=== PATIENT | female | born 1990 ===

== ENCOUNTER 2016-07-25 12:01 | Outpatient (CLI) | payer OTHER ==
[~2016-07-25] VITALS: Ht 166.4 cm; Wt 155.0 kg
[2016-07-25 12:10] VITALS: BP 114/59
== END 2016-07-25 13:18 | disposition home or self-care (01) ==
LOC: M LDO 12:01
PROVIDERS: ATTEND Student in an Organized Health Care Education/Training Program
DX: O26.893 Other specified pregnancy related conditions, third trimester (principal); Z3A.32 32 weeks gestation of pregnancy; O62.0 Primary inadequate contractions; O26.853 Spotting complicating pregnancy, third trimester

== ENCOUNTER 2016-08-02 07:00 | Outpatient (CLI) | payer OTHER ==
[~2016-08-02] VITALS: Ht 165.1 cm; Wt 72.0 kg
[2016-08-02 07:11] VITALS: BP 112/60
[2016-08-02] MEDS ORDERED: FERR325T3 PO (07:50)
[2016-08-02] MEDS ORDERED: PRENTAB9 PO (07:50)
--- NOTE | 2016-08-02 09:48 | ED PDOC ---
Provider Note [id number] @ 0937 25 yo presents to L&D triage via wheelchair @ 34+0 by LMP([id number]) and 7+1 wk US on [id number] with c/o pelvic pressure and CTXs. Denies LOF, VB and DFM. S: Pt is concerned that she is in PTL. States she has not slept for 24 hours and is scared she might fall if she walks. CTXs kept her up all night. Reported drinking some water and changing position to get more comfortable. Since arriving her CTXs have slowed down and are rare now. O: VS- WNL, afebrile FHR- 135, moderate variability, + accels, no decels CTX- irregular (BERTHA Najera found patient pressing on the toco when she went to check on her. Pt was found later to have moved to toco over the FHR monitor) SVE- closed/thick/high PMH- endometriosis; psoriasis PSH- Lap 2012; D&C 2012 A: 25 yo @ 34+0 by LMP([id number]) and 7+1 wk US on [id number]. With reassuring and reactive NST, occasional, irregular CTX not in PTL based on SVE. P: Send patient home with spouse. Education on strict return precautions: PTL, LOF, CTX, DFM and VB. BEVERLEY AMEZQUITA CNM Aug 02, 2016 09:48
== END 2016-08-02 09:54 | disposition home or self-care (01) ==
LOC: M LDO 07:00
PROVIDERS: ATTEND Obstetrics & Gynecology
DX: O47.03 False labor before 37 completed weeks of gestation, third trimester (principal); Z3A.34 34 weeks gestation of pregnancy; N80.9 Endometriosis, unspecified; L40.9 Psoriasis, unspecified; O99.713 Diseases of the skin and subcutaneous tissue complicating pregnancy, third trimester; O26.893 Other specified pregnancy related conditions, third trimester

== ENCOUNTER 2016-08-12 21:26 | Outpatient (CLI) | payer OTHER ==
[~2016-08-12] VITALS: Ht 165.1 cm; Wt 71.0 kg
[~2016-08-12 21:26] MED LIST: FERR325T3 PO; PRENTAB9 PO
[2016-08-12 21:34] VITALS: BP 118/66
== END 2016-08-12 22:45 | disposition home or self-care (01) ==
LOC: M LDO 21:26
PROVIDERS: ATTEND Obstetrics & Gynecology
DX: O47.03 False labor before 37 completed weeks of gestation, third trimester (principal); Z3A.35 35 weeks gestation of pregnancy

== ENCOUNTER 2016-08-22 14:00 | Outpatient (CLI) | payer OTHER ==
[~2016-08-22] VITALS: Ht 165.1 cm; Wt 72.0 kg
[2016-08-22 14:40] VITALS: BP 109/55
== END 2016-08-22 15:40 | disposition home or self-care (01) ==
LOC: M LDO 14:00
PROVIDERS: ATTEND Obstetrics & Gynecology
DX: O47.03 False labor before 37 completed weeks of gestation, third trimester (principal); Z3A.36 36 weeks gestation of pregnancy

== ENCOUNTER 2016-09-02 10:57 | Outpatient (CLI) | payer OTHER ==
[~2016-09-02] VITALS: Ht 162.6 cm; Wt 74.0 kg
[2016-09-02 11:10] VITALS: BP 105/56
[2016-09-02] MEDS ORDERED: TUMS500C PO (11:17)
[2016-09-02 12:03] LABS: MEAN CORPUSCULAR HEMOGLOBIN 27.8 pg (27.0-33.0); MEAN CORPUSCULAR HGB CONC 33.9 g/dl (32.0-36.5); MEAN CORPUSCULAR VOLUME 82.1 fl (80.0-96.0); RED CELL DISTRIBUTION WIDTH 12.6 % (11.5-14.5)
[2016-09-02 12:26] LABS: ALBUMIN 2.5 GM/DL (3.2-5.2); ALBUMIN/GLOBULIN RATIO 0.71 (1.00-1.93); ALKALINE PHOSPHATASE 123 U/L (45-117); ALT/SGPT 11 U/L (12-78); ANION GAP 9 MEQ/L (8-16); AST/SGOT 19 U/L (15-37); BILIRUBIN,TOTAL 0.3 MG/DL (0.2-1.0); BLOOD UREA NITROGEN 5 MG/DL (7-18); CALCIUM LEVEL 8.4 MG/DL (8.5-10.1); CARBON DIOXIDE LEVEL 22 MEQ/L (21-32); CHLORIDE LEVEL 105 MEQ/L (98-107); CREATININE FOR GFR 0.56 MG/DL (0.55-1.02); GLOMERULAR FILTRATION RATE > 60.0 (>60); GLUCOSE, FASTING 76 MG/DL (70-105); POTASSIUM SERUM 3.9 MEQ/L (3.5-5.1); SODIUM LEVEL 136 MEQ/L (136-145); URIC ACID 4.8 MG/DL (2.6-6.0)
--- NOTE | 2016-09-02 12:26 | IPNPDOC ---
Text Note Date of Service The patient was seen on 09/02/16. NOTE TRIAGE NOTE [id number] @ 1157 25 yo @ 38+2 by LMP([id number]) and 7+1 wk US on [id number] presents to L &D triage ambulatory with c/o CTXs and inability to track movement d/t the CTX pain. Denies LOF and VB. States she has a thick white discharge that looks like cottage cheese. Denies itching and burning. S: Resting in bed on her left side playing on her phone. Spouse at bedside. She states she is having CTXs described as vibrating in right upper abdomen that become a sharp pain. States it is happening every 3 minutes. She is now feeling her babe move "all the time". States she is still having the pain every 3 min, but did not have it during the 10 min I spent doing her exam. O: VS- WNL, afebrile, HR-125 on arrival, then decreased to 110 FHR- 140, moderate variability, + acceels, no decels CTX- none, resting tone palpated as soft, movement palpated No tenderness to palpation over abdomen, Negative Jurado's sign. Wet mount- neg clue cells, neg trich MICHELE- negative fungal elements SVE- 1/thick/-2, vtx/post/moderate MEDS- PNV, tums NKDA PMH- endometriosis, psoriasis PSH- lap 2012 PROBLEM LIST 1. anemia-not taking iron 2. Rh Negative- Rhogam @ 28 wks(07/19/16) 3. ASCUS, HPV + 4. difficulty breathing- pulm consult OB hx- ; [id number] 6 lbs 15 oz-Denies complications A: 25 yo @ 38+2 with reassuring and reactive NST, no concerns for CTX or GHTN, no concerns for abuse, labs reassuring P: Discharge to home, RUQ US at [place] next week VS,Fishbone, I+O VS, Fishbone, I+O Vital Signs Date Time Temp Pulse Resp B/P (MAP) Pulse Ox O2 Delivery O2 Flow Rate FiO2 09/02/16 11:10 98.3 125 18 105/56 (72) BEVERLEY AMEZQUITA CNM Sep 02, 2016 12:26
== END 2016-09-02 12:40 | disposition home or self-care (01) ==
LOC: M LDO 10:57
PROVIDERS: ATTEND Midwife
DX: O47.1 False labor at or after 37 completed weeks of gestation (principal); Z3A.38 38 weeks gestation of pregnancy; N89.9 Noninflammatory disorder of vagina, unspecified; O36.8130 Decreased fetal movements, third trimester, not applicable or unspecified; O99.013 Anemia complicating pregnancy, third trimester; R87.610 Atypical squamous cells of undetermined significance on cytologic smear of cervix (ASC-US); R87.810 Cervical high risk human papillomavirus (HPV) DNA test positive; Z86.2 Personal history of diseases of the blood and blood-forming organs and certain disorders involving the immune mechanism; Z87.09 Personal history of other diseases of the respiratory system; Z91.018 Allergy to other foods; O26.893 Other specified pregnancy related conditions, third trimester; O98.513 Other viral diseases complicating pregnancy, third trimester

== ENCOUNTER 2016-09-07 04:45 | Inpatient (IN) | payer OTHER ==
[~2016-09-07] VITALS: Ht 165.1 cm; Wt 75.0 kg
[2016-09-07] VITALS (8 sets, daily range): BP systolic 121–138; BP diastolic 58–81
[~2016-09-07 04:45] MED LIST changes: +TUMS500C PO
[2016-09-07] MEDS ORDERED: PENICILLIN G POTASSIUM IV 5 MU in D5W MINI-BAG PLUS 100 ML IV STA (06:35)
[2016-09-07] MEDS ORDERED: LACTATED RINGER'S 1000 ML IV STA (06:35)
[2016-09-07 07:21] LABS: MEAN CORPUSCULAR HEMOGLOBIN 26.8 pg (27.0-33.0); MEAN CORPUSCULAR HGB CONC 32.7 g/dl (32.0-36.5); MEAN CORPUSCULAR VOLUME 81.8 fl (80.0-96.0); RED CELL DISTRIBUTION WIDTH 12.9 % (11.5-14.5); WHITE BLOOD COUNT 18.2 K/mm3 (4.0-10.0)
[2016-09-07] MEDS ORDERED: OXYTOCIN 30 UNITS IN 0.9% NaCl 500ML IV BAG (J2590) As Ordered ONE (07:31)
[2016-09-07] MEDS: PRENATAL VITAMINS CHEWABLE TABLET PO SCH (09:00)
[2016-09-07] MEDS ORDERED: OXYTOCIN DRIP 30 UNITS in APPROPRIATE DILUENT 1 EA IV SCH (09:52)
--- NOTE | 2016-09-07 09:59 | DNPDOC ---
[facility] Delivery Note Delivery Note DATE OF DELIVERY: Sep 07, 2016 at 0851 PREDELIVERY DIAGNOSIS: 39+1 weeks' gestation and labor. POST DELIVERY DIAGNOSIS: Delivered. PROCEDURE: CRITICAL CARE NURSE SPECIALIST: Jerica Anaya CNM ANESTHESIA: none ESTIMATED BLOOD LOSS: 150 mL. FINDINGS: 7 pound 10 ounce male , Score 9/9 DELIVERY SUMMARY: 25 yo G2 n P2002 presented to L&D in active labor @ 39+1; patient progressed to c/c/+2 with epidural infusing and a strong desire to push ; delivery was via of a viable male infant to a clean field; the infant presented occiput anterior with no nuchal cord noted; anterior shoulder(left) delivered with mild downward traction, then the posterior shoulder delivered with mild upward traction; remainder of corpus delivered spontaneously; infant placed on mother's abdomen. Initial cleaning completed, delayed cord clamping x 3 minutes, then cord clamped x 2 and cut by FOB; the child had a vigorous cry and was moved to mother's chest for [id number]; pitocin was started with delivery of the anterior shoulder; 3 vessel cord and normal placenta were delivered without complications approx 6 minutes later; fundal massage was applied and vaginal vault was swept for clots; vagina and perineum examined; no lacerations noted. Small skid joleen on perineum. Fundus firm at U-1. EBL= 150 ml, Infant had 9/9; mother and are bonding well and were stable in the delivery room; anticipate routine PP course. Delivering Provider: BRIDGET Brady KELLI C. CNM Sep 07, 2016 09:59
[2016-09-07] MEDS ORDERED: ACETAMINOPHEN 500 MG TAB PO PRN (10:00)
[2016-09-07] MEDS ORDERED: DOCUSATE SODIUM 100 MG CAP PO PRN (10:00)
[2016-09-07] MEDS ORDERED: PROMETHAZINE 25 MG TAB PO PRN (10:00)
[2016-09-07] MEDS ORDERED: DIBUCAINE 1% OINTMENT 30GM TOP PRN (10:00)
[2016-09-07] MEDS ORDERED: ONDANSETRON 4MG/2ML VIAL (J2405) IV PRN (10:00)
[2016-09-07] MEDS ORDERED: MOM 30ML SUSPENSION UDC PO PRN (10:00)
[2016-09-07] MEDS ORDERED: PENICILLIN G POTASSIUM IV 2.5 MU in D5W 100 ML IV SCH (11:00)
[2016-09-07] MEDS ORDERED: RHOGAM 300 MCG (1500 IU) INJ (J2790) IM SCH (11:45)
[2016-09-07] MEDS: IBUPROFEN 800 MG TAB PO PRN ×2 (17:18→22:57)
[2016-09-08 05:52] VITALS: BP 121/74
--- NOTE | 2016-09-08 06:45 | DS.PDOC ---
Discharge Summary General Date of Admission Sep 07, 2016 at 06:33 Date of Discharge [id number] Discharge Summary PROCEDURES PERFORMED DURING STAY: spontaneous vaginal delivery ADMITTING DIAGNOSIS: 1. Active Labor DISCHARGE DIAGNOSES: 1. Healthy male infant HOSPITAL COURSE: Admitted for active labor and delivery. Uncomplicated, see delivery note. DISCHARGE MEDICATIONS: Motrin, Tylenol, Colace, Lanolin Physical exam: see note from this morning LABORATORY DATA: Please see below. ACTIVITY: as tolerated. Nothing in vagina for 6 weeks. DIET: regular DISPOSITION:stable TIME SPENT ON DISCHARGE: Greater than 15 minutes. Sessions Vital Signs/I&Os Vital Signs Date Time Temp Pulse Resp B/P (MAP) Pulse Ox O2 Delivery O2 Flow Rate FiO2 09/08/16 05:52 97.4 72 18 121/74 (90) I&O- Last 24 Hours up to 6 AM 09/08/16 06:00 Intake Total 1431 ml Output Total 550 ml Balance 881 ml Laboratory Data Labs 24H Laboratory Tests 2 09/07/16 07:44: Discharge Medications Scheduled Multivitamins/ ( 27-0.8 mg) 1 Tab Tab, 1 TAB PO DAILY, (Reported ) Miscellaneous Medications Calcium Carbonate (Tums) 500 Mg Chw, 500 MG PO, (Reported) Allergies Coded Allergies: [place] (Verified Allergy, Intermediate, HIVES, 09/02/16) SESSIONS,ISI Tierney MD Sep 08, 2016 06:45
--- NOTE | 2016-09-08 06:46 | IPNPDOC ---
Text Note Date of Service The patient was seen on 09/08/16. NOTE PPD1 prog note States feeling well, no complaints. No heavy VB. Pain controlled. Voiding, ambulatory. Bonding well and breast feeding well. VSSAF CTAB RRR Ut at U-2, firm Ext no CCE a/p: Doing well. d/c this morning. To bonding if baby not released. Sessions VS,Danni, I+O VSDanni I+O Vital Signs Date Time Temp Pulse Resp B/P (MAP) Pulse Ox O2 Delivery O2 Flow Rate FiO2 09/08/16 05:52 97.4 72 18 121/74 (90) I&O- Last 24 Hours up to 6 AM 09/08/16 05:59 Intake Total 1431 ml Output Total 550 ml Balance 881 ml ZANA,ISI Tienrey MD Sep 08, 2016 06:46
[2016-09-08] MEDS ORDERED: ACET50TA PO (07:37)
[2016-09-08] MEDS ORDERED: IBUP-1114 PO (07:37)
[2016-09-08] MEDS ORDERED: COLA100C5 PO (07:38)
[2016-09-08] MEDS: PRENATAL VITAMINS CHEWABLE TABLET PO SCH (08:19)
--- NOTE | 2016-09-12 15:11 | IPN ---
DATE: 09/08/2016 This patient requested circumcision of their male . After discussing risks and benefits of the circumcision, the medical and nonmedical indications, the penile block and aftercare expressed understanding of the penile block and aftercare, answered all questions, signed and witnessed the consent form. We await the clearance by the food stylist.
== END 2016-09-08 13:00 | disposition home or self-care (01) | DRG 775 ==
LOC: M LDO 04:45 → M LDI 06:33 → M OBS 10:55
PROVIDERS: ADMIT Obstetrics & Gynecology; ATTEND Obstetrics & Gynecology
PROC: 10E0XZZ Delivery of Products of Conception, External Approach (ICD-10-PCS; principal; 2016-09-07)
PROC: 30233S1 Transfusion of Nonautologous Globulin into Peripheral Vein, Percutaneous Approach (ICD-10-PCS; 2016-09-08)
DX: O99.02 Anemia complicating childbirth (principal); Z37.0 Single live birth; Z3A.39 39 weeks gestation of pregnancy; D64.9 Anemia, unspecified; Z79.899 Other long term (current) drug therapy